=== PATIENT | female | born 1950 | race Caucasian/White ===

== ENCOUNTER → 2017-05-20 | Outpatient (CLI) | payer OTHER ==
[~2017-05-20] MED LIST: ACETAMINOPHEN325 M1 PO; ADVAIR 100-501 EACH INH; ATELVIA35 MG PO; CENTRUM SILVER1 EACH PO; CLORAZEPATE D3.75 M1 PO; ENALAPRIL MALEA20 MG PO; L-LYSINE500 M1 PO; LEVOTHYROXIN0.125 M1 PO; LISINOPRIL20 MG PO; MOBIC15 MG PO; PRAVACHOL40 MG PO; PROAIR HFA8.5 GM IH; PROSTEON TABLE1 EACH PO; SYSTANE LIQUID15 ML OP; VITAMINC500 PO
== END ==
LOC: RAD 04:04
DX: Z12.31 Encounter for screening mammogram for malignant neoplasm of breast (principal)

== ENCOUNTER → 2018-07-08 | Outpatient (CLI) | payer OTHER | LOC: RAD 03:11 | DX: Z12.31 Encounter for screening mammogram for malignant neoplasm of breast (principal) ==

== ENCOUNTER → 2019-07-12 | Outpatient (CLI) | payer OTHER | LOC: RAD 02:36 | DX: Z12.31 Encounter for screening mammogram for malignant neoplasm of breast (principal) ==

== ENCOUNTER → 2020-09-26 | Outpatient (CLI) | payer OTHER | LOC: BC 10:29 | PROVIDERS: ATTEND Family Medicine | DX: Z12.31 Encounter for screening mammogram for malignant neoplasm of breast (principal) ==

== ENCOUNTER → 2021-10-07 | Outpatient (CLI) | payer OTHER | LOC: BC 08:23 | PROVIDERS: ATTEND Family Medicine | DX: Z12.31 Encounter for screening mammogram for malignant neoplasm of breast (principal) ==